=== PATIENT | male | born 1975 | race Caucasian/White ===

== ENCOUNTER → 2022-04-18 15:14 | Outpatient (BNVA) | payer MEDICAID, SELFPAY | PROVIDERS: Visit Provider Orthopaedic Surgery | DX: M48.062 Spinal stenosis, lumbar region with neurogenic claudication (principal); Z98.1 Arthrodesis status | CPT/HCPCS: 72100; 99204 ==

== ENCOUNTER 2022-06-19 12:54 | Outpatient (CLI) | payer MEDICAID, SELFPAY ==
--- NOTE | 2022-06-19 15:15 | MR_ITS ---
WS: [id number] MRI LUMBAR SPINE NONCONTRAST TECHNIQUE: Sagittal T1, T2 and STIR imaging. Axial T1 and T2 imaging. CLINICAL INFORMATION: back pain, previous back surgeries COMPARISON: None. FINDINGS: Mild lumbar curve. No acute compression. No high-grade central canal stenosis. Prior postoperative ch anges pedicle screw fixation L1-L3 with interconnecting rods. L1-L2: Mild LEFT and no RIGHT foraminal narrowing. Spinal canal is patent. L2-L3: No significant disc bulging. Prior laminectomy defects. Spinal canal and foramen are patent. L3-L4: Postoperative changes posterior fusion. Images degraded due to susceptibility artifact. Mild L EFT and no RIGHT foraminal narrowing. Spinal canal appears patent. L4-L5: Mild annular bulging. Mild RIGHT and no significant LEFT foraminal narrowing. Spinal canal is patent. Mild facet arthropathy with small RIGHT facet effusion. L5-S1: Mild annular bulging with slight effacement of the ventral thecal sac. Mild RIGHT and no LEFT foraminal narrowing. Mild facet arthropathy. Visualized pelvic bony structures: Normal. Paravertebral soft tissues: Normal. MR/MR lumbar spine wo con* [id number] IMPRESSION: Some images degraded due to beam hardening artifact from hardware. 1. Mild lumbar curve. No acute compression. No high-grade central canal stenos is. 2. Prior postoperative changes pedicle screw fixation L1-L3 with dorsal interc onnecting rods. 3. Mild bony foraminal narrowing LEFT L1-L2, LEFT L3-L4, and RIGHT L4-L5. 4. Mild annular bulging L5-S1 with slight effacement of ventral thecal sac. Mi ld RIGHT L5-S1 foraminal narrowing. 5. RIGHT facet synovitis L4-L5 with facet effusion
== END 2022-06-19 12:55 | disposition home or self-care (01) ==
LOC: RAD 12:54
PROVIDERS: Visit Provider Orthopaedic Surgery
DX: M48.062 Spinal stenosis, lumbar region with neurogenic claudication (principal)
CPT/HCPCS: 72148

== ENCOUNTER 2022-07-12 06:27 | Day surgery (SDC) | payer MEDICAID, SELFPAY ==
[2022-07-10 08:23] VITALS: BMI 37.3
[2022-07-12 06:42] VITALS: BP 108/87; PULSE 95; RESP 18; TEMP 36.4; O2SAT 94
[2022-07-12] MEDS: sodium chloride 0.9% 1,000 ML 30 ML IV (06:47)
--- NOTE | 2022-07-12 07:05 | P.ANESASSM_ITS ---
Pre-Anesthetic Assessment Height/Weight: Height 1.83 m Weight 124.738 kg Temp Pulse Resp BP Pulse Ox O2 Del Method 97.5 F L 95 18 108/87 94 07/12/22 06:42 07/12/22 06:42 07/12/22 06:42 07/12/22 06:42 07/12/22 06:42 07/12/22 06:42 Preop Diagnosis: screening Operation Date: 07/12/22 08:00 Proposed Procedures p Colonoscopy 21943,Z12.11(Not Applicable) - Reji Singletary DO Familial anesthetic complications: none Was Beta Nadia taken within 24 hours: N/A Was Clonidine taken within 24 hours: N/A Last intake: Intake Last Liquid Date 07/11/22 Last Liquid Time 22:10 Last Solid Date 07/10/22 Last Solid Time 19:00 Last Intake: 22:00 Social Tobacco 1 pack(s) per day 30+ pack years Exam alert, oriented x 3, clear to auscultation bilaterally and regular rate & rhythm Airway Submandibular: within normal limits Cervical ROM: within normal limits Mallampati: Class I Dentition: false (upper) and partials (lower) Pulmonary Chronic Obstructive Pulmonary Disease CV/HEM None reported None reported Hepatic None reported GI None reported Metabolic Morbid Obesity Musc/skel Lower Back Pain and Osteoarthritis/DJD Neuropsych Seizure (last 7 yrs ago) Anesthetic Plan ASA status: 2 Anesthesia: MAC Risk of > 500 ml blood loss (7ml/kg in children): No Medications/Allergies Home Medications Medication Instructions Recorded Confirmed Last Taken Type Cyclobenzaprine 10 mg PO Q8H PRN Muscle Spasm 04/18/22 07/12/22 07/11/22 History gabapentin 300 mg capsule 300 mg PO TID 04/18/22 07/12/22 07/11/22 History naproxen 500 mg tablet 500 mg PO BID 04/18/22 07/12/22 07/11/22 History duloxetine 20 mg capsule,delayed 20 mg PO ONCE 06/15/22 07/12/22 07/11/22 Hist ory release ezetimibe 10 mg tablet 10 mg PO DAILY 06/15/22 07/12/22 07/11/22 History oxycodone 10 mg tablet 10 mg PO QID PRN Pain 01/26/23 02/22/23 02/22/23 History rosuvastatin 40 mg tablet 40 mg PO DAILY 06/15/22 07/12/22 07/11/22 History Allergies Allergy/AdvReac Type Severity Reaction Status Date / Time phenytoin [From Dilantin] Allergy Severe ADR-Seizure Verified 07/12/22 06:41 Current Medications Generic Name Dose Route Start Last Admin Trade Name Freq PRN Reason Stop Dose Admin Sodium Chloride 1,000 mls @ 30 mls/hr 07/12/22 06:45 07/12/22 06:47 Sodium Chloride 0.9% IV 07/13/22 06:44 30 mls/hr .Q24H RONALDO Administration Data Anesthesia Cardiac Studies: No Data to Display
--- NOTE | 2022-07-12 08:17 | PM.HP ---
Providers/Chief Complaint Primary Care Provider: Fahad Marte MD Chief Complaint: Z12.11 History of Present Illness Hernandez Velasco is a 46 year old male here for his first screening colonoscopy. He reports colon cancer in a couple of uncles but not in his parents or grandparents. He denies any abdominal pain, nausea, emesis, diarrhea, constipation, medic easier and/or melena. Medications/Allergies Home Medications Medication Instructions Recorded Confirmed Last Taken Type Cyclobenzaprine 10 mg PO Q8H PRN Muscle Spasm 04/18/22 07/12/22 07/11/22 History gabapentin 300 mg capsule 300 mg PO TID 04/18/22 07/12/22 07/11/22 History naproxen 500 mg tablet 500 mg PO BID 04/18/22 07/12/22 07/11/22 History duloxetine 20 mg capsule,delayed 20 mg PO ONCE 06/15/22 07/12/22 07/11/22 History release ezetimibe 10 mg tablet 10 mg PO DAILY 06/15/22 07/12/22 07/11/22 History oxycodone 10 mg tablet 10 mg PO QID PRN Pain 06/15/22 07/12/22 07/12/22 History rosuvastatin 40 mg tablet 40 mg PO DAILY 06/15/22 07/12/22 07/11/22 History Allergies Allergy/AdvReac Type Severity Reaction Status Date / Time phenytoin [From Dilantin] Allergy Severe ADR-Seizure Verified 07/12/22 06:41 Vitals/I&O/Wt Last Vital Signs Temp 97.5 F L 07/12/22 06:42 Pulse 95 07/12/22 06:42 Resp 18 07/12/22 06:42 BP 108/87 07/12/22 06:42 Pulse Ox 94 07/12/22 06:42 O2 Del Method 07/12/22 06:42 Weight last 48 hrs Weight 275 lb A&P Assessment and plan (1) Colon cancer screening: Plan Colonoscopy The risks and benefits of the procedure, including bleeding, infection, intestinal perforation requiring surgery, missed lesion were explained to the patient. The patient is understanding of the risks and wishes to proceed. Attestations Medical Necessity Statement*: Home Coding Level of Care Code Acute Code for Chg Fwd Diagnoses Colon cancer screening Z12.11
[2022-07-12 08:38] VITALS: BP 108/85; PULSE 77; RESP 16; TEMP 36.1; O2SAT 94
[2022-07-12 08:50] VITALS: BP 107/79; PULSE 66; RESP 16; O2SAT 94
--- NOTE | 2022-07-12 13:56 | ANE.PACU2 ---
Inpatient post-anesthesia follow up: Airway intact: Yes Vital signs: Temperature 97.0 F Pulse Rate 66 Respiratory Rate 16 Blood Pressure 107/79 Pulse Oximetry 94 Oxygen Delivery Me thod Room Air Oxygen Flow Rate Fraction of Inspir ed Oxygen Hydration adequate: Yes Nausea and vomiting: No Pain level: 1 Mental status: Baseline
== END 2022-07-12 09:14 | disposition home or self-care (01) ==
PROVIDERS: PCP Family Medicine; Visit Provider Surgery
PROC: 0DJD8ZZ Inspection of Lower Intestinal Tract, Via Natural or Artificial Opening Endoscopic (ICD-10-PCS; CPT 45378; principal; 2022-07-12 08:00)
DX: Z12.11 Encounter for screening for malignant neoplasm of colon (principal); Z80.0 Family history of malignant neoplasm of digestive organs; K64.8 Other hemorrhoids; D12.2 Benign neoplasm of ascending colon; D12.8 Benign neoplasm of rectum; J44.9 Chronic obstructive pulmonary disease, unspecified; E66.01 Morbid (severe) obesity due to excess calories; Z68.37 Body mass index [BMI] 37.0-37.9, adult
CPT/HCPCS: 45380; 88305; J2704; J7030

== ENCOUNTER 2024-05-20 15:00 | Outpatient (CLI) | payer MEDICAID, SELFPAY ==
--- NOTE | 2024-05-20 15:06 | CT_ITS ---
WS: [id number] LDCT LUNG CANCER SCREENING HISTORY: NICOTINE DEPENDENCE TECHNIQUE: Axial imaging performed from the apices to 1 cm below the costophrenic angles. Coronal and sagittal reformats are submitted with axial MIP series. All CT scans at [facility] use at least one of these dose optimization techniques: automated exposure control; mA and/or kV adjustment per patient size (includes targeted exams where dose is matched to clinical indication); or iterativ e reconstruction. DLP: 97.51 mGy.cm DIvol: Mean CTDIvol: 2.10 (mGy) COMPARISON: None available. Diagnostic quality: Satisfactory Lungs: Tiny focal scar RIGHT apex. Chronic paraseptal emphysema. 4 mm ovoid nodule periphery RIGHT up per lobe, image 67 series 4. 5 mm minor fissure nodule. Calcified granuloma LEFT upper lobe. Heart: Normal size heart with no pericardial effusion.. Other findings: Normal aorta. No pulmonary enlargement. Small mediastinal and hilar lymph nodes. Smal l hiatal hernia. Minimal thickening of the LEFT adrenal gland. Indeterminate for adenoma. With no his tory of malignancy this is likely benign. Cholelithiasis without acute cholecystitis. CT/CT lung screening [id number] IMPRESSION: LUNG-RADS: 2-Benign Appearance or Behavior FOLLOW UP: 12 Month: Continue annual screening with LDCT OTHER FINDINGS (S MODIFIER): None.
== END 2024-05-20 15:01 | disposition home or self-care (01) ==
LOC: RAD 15:03
PROVIDERS: PCP Family Medicine; Visit Provider Family Medicine
DX: Z12.2 Encounter for screening for malignant neoplasm of respiratory organs (principal); R91.8 Other nonspecific abnormal finding of lung field; J84.10 Pulmonary fibrosis, unspecified; K44.9 Diaphragmatic hernia without obstruction or gangrene; K80.20 Calculus of gallbladder without cholecystitis without obstruction; F17.210 Nicotine dependence, cigarettes, uncomplicated
CPT/HCPCS: 71271